=== PATIENT | female | born 1950 | race African-American/Black ===

== ENCOUNTER → 2016-09-25 | Outpatient (CLI) | payer BC ==
[~2016-09-25] MED LIST: GABA-112 PO; GLC500 PO; LISI-729 PO
--- NOTE | 2016-09-25 13:28 | MAMMOGRAPHY REPORT ---
BILATERAL DIGITAL SCREENING MAMMOGRAM WITH CAD: 09/25/2016 CLINICAL HISTORY: Routine screening. Patient has no complaints. TECHNIQUE: Bilateral CC and MLO views were obtained. Current study was also evaluated with a Compute r Aided Detection (CAD) system. COMPARISON: Comparison is made to exams dated: 09/05/2015 mammogram, 08/18/2014 mammogram, 06/15/2012 edi mogram, 06/13/2011 mammogram, 09/06/2009 mammogram - [facility], and 09/01/2008. BREAST COMPOSITION: There are scattered areas of fibroglandular density in both breasts. FINDINGS: There are a few benign-appearing microcalcifications in the left breast. No suspicious mas s, architectural distortion or cluster of suspicious microcalcifications is seen. IMPRESSION: ACR BI-RADS CATEGORY 1: NEGATIVE There is no mammographic evidence of malignancy. A 1 year screening mammogram is recommended. The pa tient will receive written notification of the results. Approximately 10% of breast cancers are not detected with mammography. A negative mammographic report should not delay biopsy if a clinically suggestive mass is present. Bailey Corona M.D. ay/:09/25/2016 09:43:59 [employer] Operator: Elizabeth SALINAS(R)(M), [facility] letter sent: Normal 1/2 BI-RADS Code: ACR BI-RADS Category 1: Negative
== END | disposition home or self-care (01) ==
LOC: C.MAMM 09:01
PROVIDERS: ATTEND Obstetrics & Gynecology
DX: Z12.31 Encounter for screening mammogram for malignant neoplasm of breast (principal)

== ENCOUNTER → 2016-10-10 | Outpatient (CLI) | payer BC ==
--- NOTE | 2016-10-10 12:26 | DIAGNOSTIC IMAGING REPORT ---
LUMBAR SPINE 5 VIEWS CLINICAL HISTORY: Chronic low back pain. FINDINGS: 5 views of the lumbar spine are correlated with MRI of the lumbar spine dated 11/17/2015. The skeletal structures are osteopenic. There is no radiographic evidence of fracture or malalignment. Vertebral body height and alignment are maintained. Small anterior osteophytes are seen throughout. A benign-appearing lucent lesion in the body of L2 is unchanged. The transverse and spinous processes are intact. There is no evidence of spondylolysis. There is advanced degenerative disc space narrowing at L4-L5 with associated endplate sclerosis. Moderate narrowing is seen at L3-L4 and L5-S1. Facet arthropathy is noted in the lower lumbar region. The visualized bony pelvis appears intact. Mild sclerotic change is seen involving the sacroiliac joints. Arthritic change is noted in the hips. There is a nonobstructed abdominal bowel gas pattern noting moderate colonic fecal retention. Pelvic phleboliths are observed. IMPRESSION: 1. No acute bony abnormality is seen involving the lumbosacral spine. 2. Osteopenia and spondylotic change as above. This is similar to prior studies. Electronically signed by: Caden Florian M.D. 10/10/2016 12:25 PM Dictated Date/Time: 10/10/2016 12:22 PM
== END | disposition home or self-care (01) ==
LOC: C.RDSM 14:45
PROVIDERS: ATTEND Physician Assistant
DX: M54.5 Low back pain (principal); M85.88 Other specified disorders of bone density and structure, other site

== ENCOUNTER → 2017-06-12 | Outpatient (CLI) | payer BC ==
[2017-06-12 17:05] LABS: ALT/SGPT 19 U/L (12-78); AST/SGOT 10 U/L (15-37); BLOOD UREA NITROGEN 26 mg/dl (7-18); CALCIUM 9.3 mg/dl (8.5-10.1); CARBON DIOXIDE 29 mmol/L (21-32); CHOLESTEROL 154 mg/dl (0-200); CREATININE 0.88 mg/dl (0.60-1.20); GLUCOSE 103 mg/dl (70-99); POTASSIUM 4.5 mmol/L (3.5-5.1); SODIUM 138 mmol/L (136-145)
[2017-06-12 17:15] LABS: ALKALINE PHOSPHATASE 79 U/L (45-117); LDL CHOLESTEROL CALCULATED 75 mg/dl; TOTAL PROTEIN 7.9 gm/dl (6.4-8.2)
[2017-06-12 17:51] LABS: CREATININE RANDOM URINE 69.1 mg/dl
[2017-06-13 06:51] LABS: HEMOGLOBIN A1C 6.9 % (4.5-5.6)
== END | disposition home or self-care (01) ==
LOC: C.LAB1850 15:42
PROVIDERS: ATTEND Internal Medicine Endocrinology, Diabetes & Metabolism
DX: E11.9 Type 2 diabetes mellitus without complications (principal); E55.9 Vitamin D deficiency, unspecified; E78.5 Hyperlipidemia, unspecified; E66.9 Obesity, unspecified

== ENCOUNTER → 2017-11-18 | Outpatient (CLI) | payer BC ==
--- NOTE | 2017-11-19 13:38 | MAMMOGRAPHY REPORT ---
BILATERAL DIGITAL SCREENING MAMMOGRAM TOMOSYNTHESIS WITH CAD: 11/18/2017 CLINICAL HISTORY: Routine screening. Patient has no complaints. TECHNIQUE: The study was acquired using full field digital technology and interpreted from soft copy. Breast tomosynthesis in addition to standard 2D mammography was performed. Current study was also ev aluated with a Computer Aided Detection (CAD) system. COMPARISON: Comparison is made to exams dated: 09/25/2016 mammogram, 09/05/2015 mammogram, 08/18/2014 ma mmogram, 06/15/2012 mammogram, 06/13/2011 mammogram, and 09/06/2009 mammogram - [facility] er. BREAST COMPOSITION: There are scattered areas of fibroglandular density in both breasts. FINDINGS: The parenchymal pattern is unchanged. No developing mass, architectural distortion or cluster of susp icious microcalcifications is seen in either breast. IMPRESSION: ACR BI-RADS CATEGORY 2: BENIGN There is no mammographic evidence of malignancy. A 1 year screening mammogram is recommended.( 019) The patient will receive written notification of the results. Some breast cancers are not detected with mammography. A negative mammographic report should not charanjit y biopsy if a clinically suggestive mass is present. Bailey Corona M.D. ay/:11/18/2017 16:16:05 Senior Clinical Data Manager: RT Veronica(Su)(M), [facility] letter sent: Normal 1/2 BI-RADS Code: ACR BI-RADS Category 2: Benign
== END | disposition home or self-care (01) ==
LOC: C.MAMM 12:43
PROVIDERS: ATTEND Nurse Practitioner Family
DX: Z12.31 Encounter for screening mammogram for malignant neoplasm of breast (principal); Z13.820 Encounter for screening for osteoporosis; M85.852 Other specified disorders of bone density and structure, left thigh; M85.851 Other specified disorders of bone density and structure, right thigh; Z78.0 Asymptomatic menopausal state; Z88.8 Allergy status to other drugs, medicaments and biological substances; Z88.5 Allergy status to narcotic agent

== ENCOUNTER 2024-05-11 14:07 | Inpatient (IN) ==
[2024-05-11 14:59] LABS: Basophils # (auto) 0.06 K/uL (0.00-0.20); Basophils % (auto) 0.5 %; Eosinophils # (auto) 0.09 K/uL (0.00-0.50); Eosinophils % (auto) 0.8 %; Hemoglobin 12.3 g/dl (12.0-16.0); Immature Granulocytes # (auto) 0.03 K/uL (0.01-0.20); Immature Granulocytes % (auto) 0.3 %; Lymphocytes # (auto) 4.49 K/uL (1.20-3.40); Lymphocytes % (auto) 39.7 %; Mean Corpuscular Hemoglobin 28.8 pg (25.0-34.0); Mean Corpuscular Hgb Conc 31.5 g/dL (32.0-36.0); Mean Corpuscular Volume 91.3 fL (80.0-100.0); Mean Platelet Volume 11.3 fL (9.4-12.4); Monocytes # (auto) 1.09 K/uL (0.11-0.59); Monocytes % (auto) 9.6 %; Neutrophils # (auto) 5.54 K/uL (1.40-6.50); Neutrophils % (auto) 49.1 %; Platelet Count 272 K/uL (130-400); RDW Coefficient of Variation 14.3 % (11.5-14.5); RDW Standard Deviation 47.8 fL (36.4-46.3); Red Blood Count 4.27 M/uL (4.20-5.40)
[2024-05-11 15:21] LABS: Albumin Globulin Ratio 1.2 (0.9-2); Albumin Level 4.4 gm/dl (3.4-5.0); BUN Creatinine Ratio 18.8 (10-20); Bilirubin,Total 0.3 mg/dl (0.2-1.0); Calcium 9.8 mg/dl (8.6-10.3); Creatinine Clr Calc Pharmacy 37.6 ml/min; Globulin 3.6 gm/dl (2.5-4.0); Potassium 6.4 mmol/L (3.5-5.1)
--- NOTE | 2024-05-11 15:24 | XRay Report ---
XR chest 1V not portable CLINICAL HISTORY: Chest pain, nonspecific COMPARISON STUDY: Chest radiograph April 13, 2021. FINDINGS: Lung volumes are normal. Lungs are clear. Stable calcified granulomas within the right lowe r lung. There is no pneumothorax or pleural effusion. Cardiac size is normal. Mediastinal contours ar e normal. There is no evidence for pulmonary edema. IMPRESSION: No acute cardiopulmonary findings. No change in appearance of the chest. ACT 112: Negative or not required by law. Electronically signed by: Brennen Adler M.D. 05/11/2024 3:22 PM
[2024-05-11 15:30] LABS: Partial Thromboplastin Time 28 Seconds (21-31); Prothrombin Time 10.8 Seconds (9.0-12.0)
[2024-05-11 15:38] LABS: Troponin I High Sensitivity 5.9 pg/ml (0-14)
[2024-05-11] MEDS ORDERED: SODIUM CHLORIDE 0.9% 500 ML IV SCH (15:45)
[2024-05-11 16:01] LABS: Magnesium 1.9 mg/dl (1.7-2.4)
--- NOTE | 2024-05-11 16:02 | History & Physical Report ---
Date of Service May 11, 2024 Assessment & Plan (1) Hyperkalemia: Plan: Symptomatic with hand numbness and EKG changes Monitor on telemetry Calcium gluconate, Insulin/dextrose given in the ER Start Lokelma 10g PO TID Hold lisinopril Low potassium diet Repeat potassium 5.4, will repeat q6h. Give further insulin /dextrose if K rising, repeat calcium gluconate if K > 6 (2) Junctional bradycardia: Plan: EKG daily TTE Hold verapamil Consult cardiology - discussed with Dr Miller on admission (3) PJ (acute kidney injury): Plan: Mild, push PO fluids Repeat BMP in AM Hold lisinopril Plan VTE Prophylaxis - low risk Diet - low potassium Disposition - admit to PCU Admission and Anticipated Discharge Date Admission Date: May 11, 2024 History of Present Illness Chief Complaint: Palpitations Primary Care Provider: Amari Montanez MD Trenton Mccray is a 73 year old female who presents to the ER with palpitations and shortness of breath. She finds it difficult to explain her symptoms and changes her story often but reportedly initial symptom started 2.5 weeks ago while taking her granddaughter to the doctor she had chest tightness, palpitations and short of breath. Because she was with her granddaughter she felt she had to hied her symptoms but she did have to sit down and symptoms resolved in 30 minutes. Worse on exertion and deep breathing. Since this time she has had intermittent episodes although unclear how long these are lasting. Yesterday she felt a strong heart beat with shortness of breath possibly after exercising. Today she woke up with paresthesias in bilateral finger tips. No weakness or muscle twitching. She denies any chest pain but calls it more of a tightness whenever she has these palpations. At rest she currently feels very mildly short of breath. She denies dizziness, claudications, leg swelling. She reports 9lb of weight gain over the holidays but feels this is diet related rather than water weight. She reports dramatic change in diet the last week with eating much more fruits, nuts, seeds, water. No salt substitute. No new medication changes recently. Allergies Allergy/AdvReac Type Severity Reaction Status Date / Time silicone Allergy Severe Lip Unverified 05/11/24 17:10 swelling tramadol Allergy Severe Swelling Verified 05/11/24 17:10 of Lip/Tongue/Throat Chkkkro-IQN-NrS Reductase Allergy Mild "just Verified 05/11/24 17:10 Inhibitor didn't go [Ykftdbk-Mki-Lzr Reductase over well" Inhibitor] egg AdvReac Intermediate abdominal Verified 05/11/24 17:10 pain/diarrhea Home Medications Medication Instructions Recorded Confirmed Type metformin 1,000 mg tablet 1,000 mg PO BID 03/24/19 05/11/24 History sertraline 25 mg tablet 25 mg PO QAM 05/24/21 05/11/24 History cyanocobalamin (vitamin B-12) 1,000 mcg PO DAILY 10/22/22 05/11/24 History 1,000 mcg tablet lisinopril 20 mg tablet 20 mg PO QAM 10/22/22 05/11/24 History verapamil 120 mg 24 hr 120 mg PO QAM 10/22/22 05/11/24 History capsule,extended release zinc 50 mg tablet 50 mg PO DAILY 10/22/22 05/11/24 History ascorbic acid (vitamin C) 500 mg 500 mg PO BID 03/18/23 05/11/24 History tablet (Vitamin C) cholecalciferol (vitamin D3) 25 25 mcg PO BID 03/18/23 05/11/24 History mcg (1,000 unit) tablet (Vitamin D3) Past Med/Surg History Problem List (Updated 05/12/24 @ 07:14 by Von Johnson MD) PJ (acute kidney injury) Junctional bradycardia Hyperkalemia (Acute) Urge incontinence Dysphonia Sensorineural hearing loss (SNHL) of both ears Word finding difficulty Balance problem Postconcussion syndrome Hearing decreased Raynaud's phenomenon Major depression, recurrent Meningioma Concussion syndrome Cholesterol-lowering agent myopathy Tinnitus Medical History GERD (gastroesophageal reflux disease) Anxiety Hx of concussion 2022>was having problems with commuication but no long lasting problems Hx of vertigo Hx of tuberculosis no signs/symptoms currently>dx 1973 Sciatic nerve pain Spinal stenosis Osteoarthritis Stress incontinence Diabetes mellitus, type [address] Lemus Sleep apnea no device "lost weight" Surgical History History of tooth extraction History of cataract surgery rt/left History of bronchoscopy History of colonoscopy History of appendectomy Family History Grandfather (Maternal) Diabetes Hypertension Grandmother (Maternal) Hypertension great-grandmother Father Heart disease Other No family history of adverse response to anesthesia No family history of bleeding disorder Social History Smoking Status: Never smoker Second Hand Exposure: No; Do You Dip or Chew Tobacco: No; Hx Alcohol Use: No Hx Substance Use: No Preferred Language: Polish Communication Ability: Effective Lead Carpenter Required: No Beliefs That Will Affect Care: None marital status: Current Living Situation: Spouse current occupational status: retired Feels Safe at Home: Yes Safety Concerns: Feels Safe At This Time Assistive Devices: Glasses Review of Systems Review of Systems: All systems reviewed & are unremarkable except as noted in HPI & below Intermittent diarrhea and constipation for the last year Physical Exam Constitutional: WD/WN, vitals as above Respiratory: normal respiratory effort, lungs clear to auscultation Cardiovascular: Rate/Rhythm: regular rhythm and + bradycardic Heart Sounds: no murmur Gastrointestinal (Abdomen): normal bowel sounds, soft, nontender, no hepatosplenomegaly Results & Data Results & Data Vital Signs (Past 12 Hours) Vital Signs Temp Pulse Resp BP Pulse Ox O2 Del Method 05/11/24 14:10 36.7 C 87 20 169/67 H 98 Room Air Laboratory Results Abnormal lab results 05/11/24 05/11/24 Range/Units 14:31 16:33 WBC 11.30 H (4.8-10.8) K/ul MCHC 31.5 L (32.0-36.0) g/dL RDW Std Deviation 47.8 H (36.4-46.3) fL Lymph # (Auto) 4.49 H (1.20-3.40) K/uL [place] # (Auto) 1.09 H (0.11-0.59) K/uL Sodium 133 L (136-145) mmol/L Potassium 6.4 H* (3.5-5.1) mmol/L BUN 27 H (6-23) mg/dl Creatinine 1.44 H (0.6-1.2) mg/dl Glucose 112 H (70-99(Fasting)) mg/dl POC Glucose 132 H (70-99) mg/dl Diagnostic Findings XR chest 1V not portable CLINICAL HISTORY: Chest pain, nonspecific COMPARISON STUDY: Chest radiograph April 13, 2021. FINDINGS: Lung volumes are normal. Lungs are clear. Stable calcified granulomas within the right lower lung. There is no pneumothorax or pleural effusion. Cardiac size is normal. Mediastinal contours are normal. There is no evidence for pulmonary edema. IMPRESSION: No acute cardiopulmonary findings. No change in appearance of the chest. Medications Administered ER Medications Given: Calcium gluconate 1000mg IV Insulin 5 units IV Dextrose 50% 50ml Normal saline 500ml bolus ECG Rate (beats per minute): 52 Rhythm: other (junctional bradycardia) Findings: + other (peaked T waves) Comparison ECG Date: from (June 21, 2022) Change: the following changes noted (Junctional bradycardia is new) Code Status & VTE Plan Code Status Full VTE Prophylaxis Plan VTE Prophylaxis will be ordered: No PG Care Time/CCT Total # of Minutes Spent Total Time Spent with Patient: Total time spent is greater than 50% in coordination of care (as documented) at patient's floor/unit and/or counseling patient: Coding Level of Care Code 01358 INT INP/OBS CARE 3/75MIN Diagnoses Hyperkalemia E87.5 Junctional bradycardia R00.1 PJ (acute kidney injury) N17.9
[2024-05-11] MEDS: INSULIN HUMAN REGULAR PER UNIT 5 UNITS in SYRINGE 9.9 ML IV STA (16:07)
[2024-05-11] MEDS: CALCIUM GLUCONATE 1,000 MG/60 ML BAG IV STA (16:07)
[2024-05-11] MEDS: DEXTROSE 50% 50 ML SYRINGE IV STA (16:07)
[2024-05-11] MEDS: SODIUM ZIRCONIUM CYCLOSILICATE 10 GM PACKET PO STA (16:08)
--- NOTE | 2024-05-11 17:03 | Emergency Department Note ---
History of Present Illness General Chief Complaint: Arrhythmia/Palpitations Stated Complaint: PALPITATIONS/STARTED YESTERDAY Time Seen by Provider: 05/11/24 15:22 History of Present Illness Provider Complaint: + palpitations Onset (ago): 2 day(s) Duration: + Intermittent Context: + occurred during rest Arrhythmia history: no on anti-coagulants Associated symptoms: + shortness of breath; no chest pain, no syncope, no vomiting or no cough Home Medications Medication Instructions Recorded Confirmed Type metformin 1,000 mg tablet 1,000 mg PO BID 03/24/19 02/20/24 History sertraline 25 mg tablet 25 mg PO QAM 05/24/21 02/20/24 History cyanocobalamin (vitamin B-12) 1,000 mcg PO DAILY 10/22/22 02/20/24 History 1,000 mcg tablet lisinopril 20 mg tablet 20 mg PO QAM 10/22/22 02/20/24 History verapamil 120 mg 24 hr 120 mg PO QAM 10/22/22 02/20/24 History capsule,extended release zinc 50 mg tablet 50 mg PO DAILY 10/22/22 02/20/24 History ascorbic acid (vitamin C) 500 mg 500 mg PO BID 03/18/23 02/20/24 History tablet (Vitamin C) cholecalciferol (vitamin D3) 25 25 mcg PO BID 03/18/23 02/20/24 History mcg (1,000 unit) tablet (Vitamin D3) multivitamin (Daily Multi-Vitamin 1 tab PO DAILY 01/22/24 02/20/24 History tablet) Allergies Allergy/AdvReac Type Severity Reaction Status Date / Time tramadol Allergy Severe Swelling Verified 02/20/24 14:04 of Lip/Tongue/Throat Uzyzmwz-RHH-CqU Reductase Allergy Mild "just Verified 02/20/24 14:04 Inhibitor didn't go [Puqtwya-Gto-Huc Reductase over well" Inhibitor] egg AdvReac Intermediate abdominal Verified 02/20/24 14:04 pain/diarrhea Past Med/Surg History Problem List (Updated 05/11/24 @ 17:09 by Jeanmarie Larios MD) Hyperkalemia (Acute) Urge incontinence Dysphonia Sensorineural hearing loss (SNHL) of both ears Word finding difficulty Balance problem Postconcussion syndrome Hearing decreased Raynaud's phenomenon Major depression, recurrent Meningioma Concussion syndrome Cholesterol-lowering agent myopathy Routine gynecological examination Encounter for pre-operative examination Tinnitus Medical History GERD (gastroesophageal reflux disease) Anxiety Hx of concussion 2022>was having problems with commuication but no long lasting problems Hx of vertigo Hx of tuberculosis no signs/symptoms currently>dx 1973 Sciatic nerve pain Spinal stenosis Osteoarthritis Stress incontinence Diabetes mellitus, type [address] Lemus Sleep apnea no device "lost weight" Surgical History History of tooth extraction History of cataract surgery rt/left History of bronchoscopy History of colonoscopy History of appendectomy Family History Grandfather (Maternal) Diabetes Hypertension Grandmother (Maternal) Hypertension great-grandmother Father Heart disease Other No family history of adverse response to anesthesia No family history of bleeding disorder Social History Smoking Status: Never smoker Second Hand Exposure: No; Do You Dip or Chew Tobacco: No; Hx Alcohol Use: No Hx Substance Use: No Preferred Language: Urdu Communication Ability: Effective Scale Clerk Required: No Beliefs That Will Affect Care: None marital status: Current Living Situation: Spouse current occupational status: retired Feels Safe at Home: Yes Assistive Devices: Denture - Lower Physical Exam 2 Vital Signs: Vital Signs - 24 hr 05/11/24 14:10 05/11/24 16:12 05/11/24 16:13 Temperature 36.7 C Temperature Source Temporal Artery Sc an Pulse Rate 87 43 L Pulse Rate [Right Finger] 72 Pulse Rhythm Regular Pulse Rhythm [Righ t Finger] Regular Pulse Strength Normal Pulse Strength [Ri ght Finger] Normal Respiratory Rate 20 13 Respiratory Effort / Characteristics Non-Labored Sponta neous Non-Labored Respiratory Depth Normal Normal Respiratory Patter n Regular Blood Pressure 169/67 H Blood Pressure [Ri ght Arm] 160/72 H Blood Pressure Iris n 101 Blood Pressure Iris n [Right Arm] 101 Blood Pressure Pos ition [Right Arm] Lying Pulse Oximetry 98 96 Oxygen Delivery Me thod Room Air Room Air Sepsis Recent Feve r Within 48 Hours No Sepsis New/Unexpla ined Change in Men debora Status N/A Sepsis Action Take n by Nursing No Action Required 05/11/24 16:13 Temperature Temperature Source Pulse Rate Pulse Rate [Right Finger] Pulse Rhythm Pulse Rhythm [Righ t Finger] Pulse Strength Pulse Strength [Ri ght Finger] Respiratory Rate Respiratory Effort / Characteristics Respiratory Depth Respiratory Patter n Blood Pressure Blood Pressure [Ri ght Arm] Blood Pressure Iris n Blood Pressure Iris n [Right Arm] Blood Pressure Pos ition [Right Arm] Pulse Oximetry 96 Oxygen Delivery Me thod Room Air Sepsis Recent Feve r Within 48 Hours Sepsis New/Unexpla ined Change in Men debora Status Sepsis Action Take n by Nursing Physical Exam: Physical Exam GENERAL: oriented to person, place, and time. appears well-developed and well- nourished. HENT: Exam performed. - Head: Normocephalic and atraumatic. EYES: Conjunctivae and EOM are normal. Right eye exhibits no discharge. Left eye exhibits no discharge. No scleral icterus. NECK: Normal range of motion. Neck supple. No JVD present. CV: Normal rate, regular rhythm, normal heart sounds and intact distal pulses. There is no peripheral edema. Palpable radial pulses bue. PULM/CHEST: Effort normal and breath sounds normal. No respiratory distress. No stridor. no wheezes. no rales. ABD: The abdomen is soft. There is no tenderness. NEURO: Motor and sensation grossly intact. SKIN: Skin is warm and dry. He is not diaphoretic. PSYCH: normal mood and affect. Behavior is normal. Judgment and thought content normal. Course Course 1522: The patient was evaluated in room C9. A complete history and physical exam was performed Administered Medications Discontinued Medications Dextrose (Dextrose 50% 50 Ml Syringe) 50 ml IV NOW STA Stop: 05/11/24 15:24 Last Admin: 05/11/24 16:07 Dose: 50 ml Documented By: CARA Calcium Gluconate () 1,000 mg in 60 mls @ 240 mls/hr IV NOW STA Stop: 05/11/24 15:37 Last Infusion: 05/11/24 16:34 Dose: Infused Documented By: Admin: 05/11/24 16:07 Dose: 240 mls/hr Documented By: CARA Insulin Human Regular 5 units/ (Syringe) 9.9 mls @ 3 mls/sec IV ONE STA Stop: 05/11/24 15:24 Last Admin: 05/11/24 16:07 Dose: 3 mls/sec Documented By: CARA Co-signed By: CHITO Sodium Zirconium Cyclosilicate (Sodium Zirconium Cyclosilicate 10 Gm Packet) 10 gm PO ONE STA Stop: 05/11/24 15:44 Last Admin: 05/11/24 16:08 Dose: 10 gm Documented By: CARA Medical Decision Making Laboratory Data Attestation: I reviewed the patient's lab results. 05/11/24 14:31 05/11/24 14:31 Lab Results 05/11/24 05/11/24 Range/Units 14:31 16:33 WBC 11.30 H (4.8-10.8) K/ul RBC 4.27 (4.20-5.40) M/uL Hgb 12.3 (12.0-16.0) g/dl Hct 39.0 (37.0-47.0) % MCV 91.3 (80.0-100.0) fL MCH 28.8 (25.0-34.0) pg MCHC 31.5 L (32.0-36.0) g/dL RDW Std Deviation 47.8 H (36.4-46.3) fL RDW Coeff of Tyesha 14.3 (11.5-14.5) % Plt Count 272 (130-400) K/uL MPV 11.3 (9.4-12.4) fL Immature Gran % (Auto) 0.3 % Neut % (Auto) 49.1 % Lymph % (Auto) 39.7 % [place] % (Auto) 9.6 % Eos % (Auto) 0.8 % Baso % (Auto) 0.5 % Neut # (Auto) 5.54 (1.40-6.50) K/uL Lymph # (Auto) 4.49 H (1.20-3.40) K/uL [place] # (Auto) 1.09 H (0.11-0.59) K/uL Eos # (Auto) 0.09 (0.00-0.50) K/uL Baso # (Auto) 0.06 (0.00-0.20) K/uL Immature Gran # (Auto) 0.03 (0.01-0.20) K/uL PT 10.8 (9.0-12.0) Seconds INR 1.0 (0.9-1.1) APTT 28 (21-31) Seconds PTT Ratio 1.0 Sodium 133 L (136-145) mmol/L Potassium 6.4 H* (3.5-5.1) mmol/L Chloride 104 (98-107) mmol/L Carbon Dioxide 23 (21-32) mmol/L Anion Gap 6 (3-11) BUN 27 H (6-23) mg/dl Creatinine 1.44 H (0.6-1.2) mg/dl Est Cr Clr Drug Dosing 37.6 ml/min eGFR 38.17 BUN/Creatinine Ratio 18.8 (10-20) Glucose 112 H (70-99(Fasting)) mg/dl POC Glucose 132 H (70-99) mg/dl Calcium 9.8 (8.6-10.3) mg/dl Magnesium 1.9 (1.7-2.4) mg/dl Total Bilirubin 0.3 (0.2-1.0) mg/dl AST 18 (13-39) U/L ALT 12 (7-52) U/L Alkaline Phosphatase 94 (34-104) U/L Troponin I High Sens 5.9 (0-14) pg/ml Total Protein 8.0 (6.0-8.3) gm/dl Albumin 4.4 (3.4-5.0) gm/dl Globulin 3.6 (2.5-4.0) gm/dl Albumin/Globulin Ratio 1.2 (0.9-2) Imaging Data Attestation: I personally reviewed and interpreted this imaging study as follows: My Impression: Chest x-ray negative. Airway clear. No pneumothorax. No consolidation. No cardiomegaly or cephalization.. No free air under the diaphragm. No fractures of the skeletal structures. Radiologist's Impression: Chest X-Ray 05/11/24 14:14 XR chest 1V not portable CLINICAL HISTORY: Chest pain, nonspecific COMPARISON STUDY: Chest radiograph April 13, 2021. FINDINGS: Lung volumes are normal. Lungs are clear. Stable calcified granulomas within the right lower lung. There is no pneumothorax or pleural effusion. Cardiac size is normal. Mediastinal contours are normal. There is no evidence for pulmonary edema. IMPRESSION: No acute cardiopulmonary findings. No change in appearance of the chest. ACT 112: Negative or not required by law. Electronically signed by: Brennen Adler M.D. 05/11/2024 3:22 PM ECG Data Attestation: I personally reviewed and interpreted this ECG as follows: Rate (beats per minute): 52 Rhythm: junctional Findings: + peaked T-waves; no ST depression, no ST elevation or no prolonged QT MDM Narrative Cardiac monitoring: An order was placed for continuous cardiac monitoring. The monitor shows a rate of 50 with junctional rhythm interpreted by me Patient was seen during a time of extreme volume and extreme acuity. Nursing triage protocols were initiated labs and imaging was conducted by protocol in the triage area. Potassium 6.4. Patient be treated with calcium gluconate IV insulin and 1 amp of D50. [facility]. [facility]ression & Plan Hyperkalemia Critical Care Time Critical Care Time: Yes Total Critical Care Time: 50 I have personally spent greater than 50 minutes of critical care time in the direct management of this patient. This includes bedside care, interpretation of diagnostic studies, and testing, discussion with consultants, patient, and family members, and other required patient management activities. This 50 minutes is in excess of all separately billable procedures. Discharge Plan Visit Data Chief Complaint: Arrhythmia/Palpitations Stated Complaint: PALPITATIONS/STARTED YESTERDAY ED Provider: Jeanmarie Larios Discharge Problem: Hyperkalemia Patient Disposition: Admitted As Inpatient Forms Stand Alone Forms: My [facility] [address] Prescriptions Prescriptions: No Action sertraline 25 mg tablet 25 mg PO QAM cyanocobalamin (vitamin B-12) 1,000 mcg tablet 1,000 mcg PO DAILY lisinopril 20 mg tablet 20 mg PO QAM verapamil 120 mg capsule,ext rel. pellets 24 hr 120 mg PO QAM multivitamin [Daily Multi-Vitamin] Tablet 1 tab PO DAILY metformin 1,000 mg Tablet 1,000 mg PO BID zinc 50 mg tablet 50 mg PO DAILY ascorbic acid (vitamin C) [Vitamin C] 500 mg Tablet 500 mg PO BID cholecalciferol (vitamin D3) [Vitamin D3] 25 mcg (1,000 unit) Tablet 25 mcg PO BID Referrals Referrals: Amari Montanez MD [Primary Care Provider] -
[2024-05-11 20:16] VITALS: RESP 18
--- OUTSIDE RECORDS SUMMARY | 2024-05-11 21:30 | External Medical Summary | Continuity of Care Document ---
Author Name Unknown Organization [facility] [address] [facility] [id number] Care Team Providers Care Hospice Social Worker Name Role Phone Amari Montanez Primary Care Physician [phone] Encounter [facility] [id number] Date(s): 05/04/24 - 05/04/24 [facility] [address] [facility] [address] [facility] 1 [place], [place] [phone] Encounter Diagnosis Other malaise(Final) - Encounter for therapeutic drug level monitoring(Final) - Type 2 diabetes mellitus without complications(Final) - Discharge Disposition: Home or Self Care Attending Physician: MD Montanez Joseph P Referring Physician: MD Montanez Joseph P Allergies, Adverse Reactions, Alerts Substance Criticality Severity Reaction Reaction Severity Status Lipitor myalgias Active traMADol rash Active eggs cramps, stomach ache Active Allergy Not found in Search unknown abx- got really sick white gold-dermatitis Active Immunizations Given and Recorded Vaccine Date Status Refusal Reason pneumococcal 23-valent vaccine 03/12/22 Given pneumococcal 23-valent vaccine 04/14/13 Recorded influenza virus vaccine, inactivated 03/12/22 Give n influenza virus vaccine, inactivated 03/27/20 Give n influenza virus vaccine, inactivated 1 02/04/18 Re corded influenza virus vaccine, inactivated 12/31/16 Give n zoster vaccine, inactivated 04/02/21 Recorded tetanus/diphtheria/pertuss, acel (Tdap) 09/28/19 G iven zoster vaccine live 2 11/15/15 Given pneumococcal 13-valent vaccine 3 11/15/15 Given 1Result Comment: 2018-05-19: Historical information-source unspecified 2Early/Late Reason: Other : busy 3Early/Late Reason: Other : busy Medications Euflexxa 10 mg/mL intra-articular solution Start: 04/23/24 11:48:00 AM EST, 20 mg =, intra-articular, q7days, Disp# 12 mL, X 3 weeks, Refills: 0, B/L KNEE DJD M17.0, Note to Pharmacy: 6 syringes for B/L knees. Please ship to physician's office: [address]. [address] [place] [id number], Stop: 05/14/24 11:48:00 AM EST, Pharmacy: [facility] Start Date: 04/23/24 Stop Date: 05/14/24 Status: Ordered hydrocortisone valerate 0.2% topical cream Start: 04/11/23 6:15:00 AM EST, 1 appl, topical, Daily, Disp# 45 g, Refills: 1, Pharmacy: [id number] Start Date: 04/11/23 Stop Date: 05/09/23 Status: Ordered lisinopril 20 mg oral tablet Start: 04/08/24 11:45:00 AM EST, 1 tab, PO, Daily, Disp# 90 tab, Refills: 3, Pharmacy: [id number] Start Date: 04/08/24 Status: Ordered metFORMIN 1000 mg oral tablet Start: 11/13/23 10:39:00 AM EDT, 1 tab, PO, bid, Disp# 180 tab, Refills: 3, Pharmacy: [id number] Start Date: 11/13/23 Status: Ordered sertraline 25 mg oral tablet Start: 11/13/23 10:39:00 AM EDT, 1 tab, PO, Daily, Disp# 90 tab, Refills: 3, Pharmacy: [id number] Start Date: 11/13/23 Status: Ordered verapamil 120 mg/24 hours oral capsule, extended release Start: 04/02/23 5:37:00 PM EST, 1 cap, PO, Daily, Disp# 90 cap, Refills: 3, Pharmacy: [id number] Start Date: 04/02/23 Status: Ordered Vitamin B12 1000 mcg oral tablet Start: 05/31/13 3:17:00 PM EST, 1 tab, PO, Daily Start Date: 05/31/13 Status: Ordered Vitamin C Start: 04/23/18 1:11:00 PM EST, PO, Daily Start Date: 04/23/18 Status: Ordered Vitamin D3 Start: 04/23/18 1:11:00 PM EST, See Instructions, 3,000 daily Start Date: 04/23/18 Status: Ordered Zinc Start: 04/23/18 1:11:00 PM EST, PO, Daily Start Date: 04/23/18 Status: Ordered ZyrTEC 10 mg oral tablet Start: 04/04/23 11:45:00 AM EST, 1 tab, PO, Daily, Disp# 30 tab, Refills: 1, PRN: as needed for allergy symptoms, Pharmacy: [id number] Start Date: 04/04/23 Stop Date: 06/03/23 Status: Ordered Problem List Condition Confirmation Course Effective Dates Status H ealth Status Informant Arthrosis of left midfoot Confirmed Active Meningioma Confirmed Active Tinnitus, bilateral Confirmed Active Chronic dermatitis Confirmed Active Eczema Confirmed Active High blood pressure Confirmed Active History of positive PPD Confirmed Active Hyperlipidemia Confirmed Active VAMSI on CPAP Confirmed Active Osteoarthritis of knee Confirmed Active Major depression, recurrent Confirmed Active Sensorineural hearing loss Confirmed Active Sleep apnea Confirmed Active Spinal stenosis Confirmed Active Type 2 diabetes mellitus with mild nonproliferative diabetic retinopathy without macular edema, bilateral Confirmed Active Procedures Procedure Date Related Diagnosis Body Site Status Colonoscopy 1 03/26/23 Completed Ultrasound of soft tissue of head and neck 2 12/20/22 Completed Ultrasound scan of thyroid 3 12/20/22 Completed Plain X-ray of bilateral clavicles 4 12/17/[address] of cervical spine 5 06/21/[address] of head 6 06/21/22 Completed CXR - Chest X-ray 7 04/13/21 Compl eted DEXA of hip and spine 8 01/23/21 C ompleted Mammogram 9 01/23/21 Completed Cataract surgery OD 10 05/04/19 Co mpleted Cataract surgery- OS 04/20/19 Comp leted Shoulder X-ray 11 04/08/19 Complet ed X-ray of right foot 12 04/08/19 Co mpleted Examining eye 13 03/02/19 Complete d DEXA (dual energy X-ray absorptiometry) of lateral spine 14 01/22/19 Completed Mammogram 15 12/08/18 Completed Papanicolaou smear 11/02/18 Comple pancho Diabetic retinal eye exam 16 09/17/18 Completed Mammogram 17 11/18/17 Completed Eye examination 18 09/19/17 Comple pancho Colonoscopy 19 03/18/17 Completed Papanicolaou smear for cervi ravinder cancer screening 10/25/16 Completed Mammogram 20 09/25/16 Completed DEXA - Dual energy X-ray collette ton absorptiometry 09/14/15 Completed PAP test date 09/01/15 Completed Colonoscopy 21 10/07/05 Completed Appendectomy 1957 Completed Bronchoscopy Completed 1External and internal hemorrhoids. The rectum, sigmoid colon, descending colon, splenic flexure, transverse colon, hepatic flexure, ascending colon, cecum and recto-sigmod colon was normal. No specimens. Repeat in 5 years. 2Impression: No acute abnormality is seen within the visualized region 3Impression: A 6x5x4 mm hypoechoic nodule within the lower pole the right thyrod lobe. This dose not meet sonographic criteria for biopsy 4Impression: No acute osseous abnormality 5Impression: 1. There is no evidence of fracture or subluxation involoving the cervival spine 2. Osteopenia and spondylitic change as above. 6Impression: There is no hemorrhage, mass effect, or evidence of acute territorial ischemia by CT criteria 7FINDINGS: Frontal and lateral radiographs of the chest demonstrate the cardiomediastinal silhouette to be within normal limits. The lungs are clear of alveolar opacities. Calcified granuloma seen within the right hilum and right middle lobe. This is characteristic of granulomatous disease. There is no evidence for effusion bilaterally. There is no evidence for vascular congestion. There is no acute osseouspathology. IMPRESSION: No acute cardiopulmonary disease. 8ap spine fx risk low left neck femur moderate fx risk right neck femur moderate fx risk total left low total right low zscore wnl 9Impression: There is no mammographic evidence of malignancy. 10Right cataract phacoemulsification with intraocular lens implant. 111. No acue fracture. 2. Moderate right shoulder osteoarthritis. 12No acute osseous injury. 13Bilateral cataracts, left being worse than the right. 14AP Spine L1-L4 is 1.374 with a T-score of 1.5 Femur Neck Left is 0.858 with a T-score of -1.3 Femur Neck Right is 0.798 wuth a T-score of -1.7 Femur Total Mean is 0.855 with a T-score of -1.2 With a Z-score of -1.0, this patient's BMD is low for someone this age. 15IMPRESSION: ACR BI-RADS CATEGORY 1: NEGATIVE There is no mammographic evidence of malignancy. A one year screening is recommended. 16No diabetic retinopathy. 17wnl 18DIABETIC EYE EXAM NO EVIDENCE OF RETINOPATHY. FOLLOW UP IN 1 YEAR 19One 7mm polyp in the cecum, removed with cold snares. One 3 mm polyp in the proximal transverse colon. Non bleeding internal hemorrhoids 20wnl 21Colonoscopy normal- Repeat in 10 years. Results Laboratory List Name Date Comprehensive Metabolic Panel (COMP META B PANEL) 05/04/24 Hemoglobin A1C (HEMOGLOBIN, A1C) 05/04/24 Thyroid Stimulating Hormone (TSH) 5 Most recent to oldest [Reference Range]: 1 eGFR CKD-EPI [>60 mL/min/1.73 m2] 74 mL/ min/1.73 m2 1 (05/04/24 1:47 PM) Estimated Average Glucose 146 mg/dL 2 (05/04/24 1:47 PM) Estimated CrCl 65.47 mL/min (05/04/24 2:22 PM) Anion Gap [5-14 mmol/L] 5 mmol/L (05/04/24 1:47 PM) Alb [3.5-5.0 g/dL] 4.3 g/dL (05/04/24 1:47 PM) Alk Phos [38-126 unit/L] 85 unit/L (05/04/24 1:47 PM) ALT [<35 unit/L] 18 unit/L (05/04/24 1:47 PM) AST [15-46 unit/L] 19 unit/L (05/04/24 1:47 PM) BUN [7-20 mg/dL] 18 mg/dL (05/04/24 1:47 PM) Ca [8.4-10.2 mg/dL] 9.3 mg/dL (05/04/24 1:47 PM) Cl- [96-107 mmol/L] 106 mmol/L (05/04/24 1:47 PM) HCO3 [22-30 mmol/L] 27 mmol/L (05/04/24 1:47 PM) Cret [0.60-1.00 mg/dL] 0.83 mg/dL (05/04/24 1:47 PM) HbA1c [4.0-6.0 %] 6.7 % *HI* (05/04/24 1:47 PM) Glu [74-106 mg/dL] 103 mg/dL (05/04/24 1:47 PM) K [3.5-5.1 mmol/L] 5.3 mmol/L *HI* (05/04/24 1:47 PM) Na [137-145 mmol/L] 138 mmol/L (05/04/24 1:47 PM) T Bili [0.2-1.3 mg/dL] 0.4 mg/dL (05/04/24 1:47 PM) Prot [6.3-8.2 g/dL] 8.0 g/dL (05/04/24 1:47 PM) TSH [0.47-4.68 uIU/mL] 1.83 uIU/mL 3 (05/04/24 1:47 PM) 1Result Comment: Testing Performed By: Dept of Pathology [facility] Tarun Minaya, [address] [place] [id number] 2Result Comment: Testing [facility]formed [facility]: [facility], [address] [place] [id number] 3Result Comment: Testing Performed By: [facility], [address] [place] [id number] Social History Social History Type Response Smoking Status Never smoked cigaret kim Sex Female Sex Representation Female (finding) Patient Care team information Care Team Personnel Name: MD Tarik, Amari Kelley Position: Physician - Family Med Member Role: Primary Care Provider Address: [address] [place] [address] [place] Care Team Related Persons Name: LILIA GARCIA
--- OUTSIDE RECORDS SUMMARY | 2024-05-11 21:30 | External Medical Summary | Continuity of Care Document ---
Author Name Unknown Organization [facility] [address] [id number] Address [address] [place] [id number] Care Team Providers Care Commercial Real Estate Paralegal Name Role Phone Amari Montanez Primary Care Physician [phone] Encounter [facility] [id number] Date(s): 04/22/24 - 04/22/24 [facility] [address] [facility] [address] [facility] [address] [place] [address] Encounter Diagnosis Left knee DJD(Discharge Diagnosis) - 04/22/24 Bilateral primary osteoarthritis of knee(Discharge Diagnosis) - 04/22/24 Discharge Disposition: Home or Self Care Attending Physician: OBDULIA Tsang Cory D Allergies, Adverse Reactions, Alerts Substance Criticality Severity Reaction Reaction Severity Status Lipitor myalgias Active traMADol rash Active eggs cramps, stomach ache Active Allergy Not found in Search unknown abx- got really sick white gold-dermatitis Active Assessment and Plan Extracted from: Title:Clinical Document Author:OBDULIA Tsang C ory D Date:04/22/24 OUTPATIENT NOTE Name: CANDY GARCIA V Patient Number:1 [id number] : 1950 Date of Service: 04/22/2024 Chief complaint: Bilateral knee pain, left greater than right HPI: This 73-year-old female presents today for evaluation of her knees. She has had increasing pain in her knees over the last few months. I last saw her a year and 5 days ago. At that time, she was considering total knee replacement for her left knee. She states the knee did very well all spring and summer. This fall began bothering her again. Her right knee is also bothering her. Left knee is lateral and right knee is medial. She has had some minor swelling intermittently. She notes some loss of motion. She would like to try viscosupplementation injections in hopes of delaying surgery. She states she last had them approximately 2 years ago and they worked reasonably well. No additional complaints. Physical exam General: Well-developed, well-nourished, elderly female, in no acute distress. Sitting in a chair. Alert and oriented. Obvious discomfort from her knees. Skin: Warm dry with good turgor. No rashes. No ecchymosis or erythema. No intra-articular effusions. Musculoskeletal: The patient has full terminal extension of both knees. Flexion to 105 degrees she has focal discomfort with palpation over the lateral joint line of the left knee and medial joint line of the right knee. There is also medial joint line discomfort on the left knee, but it is not as severe. Crepitus is palpable with motion in both of the knees. Stable collateral ligaments. No palpable defect or discomfort with palpation over the patellar tendon or quadriceps tendon of either knee. Ambulating today with a slightly antalgic gait. Neurologic: Gross sensation is intact across both lower extremities by soft touch. Data: Radiographic imaging obtained today of both knees was interpreted by me and read by radiology. These were compared to her films from a year ago. She has significant osteoarthritic change of the lateral compartment of the left knee and medial compartment of the right knee. Periarticular osteophytes, subchondral sclerosis, and joint space narrowing are present in both knees. She has a windswept appearance. No fractures or loose bodies are noted. Impression: Bilateral knee DJD Plan: The patient was educated regarding today's findings. Conservative care measures were discussed. Option of corticosteroid injection, viscosupplementation injection, and total knee arthroplasty was discussed at length. She is a diabetic and does not want cortisone. She would like to try viscosupplementation to see if it provides improved comfort. I think it is reasonable. She understands that if the injections do not help, she should start thinking about total knee arthroplasty over the spring or summer. Follow-up once her Euflexxa is authorized. She may use OTC medications as well as compression and ice for edema and pain control. This dictation has been completed using [employer] text voice recognition software. Grammatical errors, omissions, insertions, and misspellings may be present due to the limitations of the software. Immunizations Given and Recorded Vaccine Date Status [...] to physician's office: [address]. [address] [place] [id number], Stop: 05/14/24 11:48:00 AM EST, Pharmacy: [facility] Start Date: 04/23/24 Stop Date: 05/14/24 Status: Ordered hydrocortisone valerate 0.2% topical cream Start: 04/11/23 6:15:00 AM EST, 1 appl, topical, Daily, Disp# 45 g, Refills: 1, Pharmacy: [id number] Start Date: 04/11/23 Stop Date: 05/09/23 Status: Ordered lisinopril 20 mg oral tablet Start: 04/08/24 11:45:00 AM EST, 1 tab, PO, Daily, Disp# 90 tab, Refills: 3, Pharmacy: [facility] [id number] Start Date: 04/08/24 Status: Ordered metFORMIN 1000 mg oral tablet Start: 11/13/23 10:39:00 AM EDT, 1 tab, PO, bid, Disp# 180 tab, Refills: 3, Pharmacy: [facility] [id number] Start Date: 11/13/23 Status: Ordered sertraline 25 mg oral tablet Start: 11/13/23 10:39:00 AM EDT, 1 tab, PO, Daily, Disp# 90 tab, Refills: 3, Pharmacy: [facility] [id number] Start Date: 11/13/23 Status: Ordered verapamil 120 mg/24 hours oral capsule, extended release Start: 04/02/23 5:37:00 PM EST, 1 cap, PO, Daily, Disp# 90 cap, Refills: 3, Pharmacy: [facility] [id number] Start Date: 04/02/23 Status: Ordered Vitamin B12 [...] PRN: as needed for allergy symptoms, Pharmacy: [id number] Start Date: 04/04/23 Stop Date: 06/03/23 Status: Ordered Mental Status 04/22/24 Barriers to Learning one year None evide nt Mandatory Health Literacy Documentation Yes Health Literacy Communication Barriers N ever Primary Language Marshallese Problem List Condition Confirmation Course Effective Dates [...] retinopathy without macular edema, bilateral Confirmed Active Diagnosis Diagnosis Type Effective Dates Health Status Clinical Service Informant Bilateral primary osteoarthritis of knee Discharge Diagnosis 04/22/24 Left knee DJD Discharge Diagnosis 04/22/24 Procedures Procedure Date Related Diagnosis Body Site [...] 20wnl 21Colonoscopy normal- Repeat in 10 years. Social History Social History Type Response Smoking Status Never smoked cigaret kim Sex Female Sex Representation Female (finding) Outpatient Note * OBDULIA Tsang, Cj Kwok: PERFORM Event Display: .Outpt Note Authored Date: OUTPATIENT NOTE Name: CANDY GARCIA V Patient Number:1 [id number] : 1950 Date of Service: 04/22/2024 Chief complaint: Bilateral knee pain, left greater than right HPI: This 73-year-old female presents today for evaluation of her knees. She has had increasing pain in her knees over the last few months. I last saw her a year and 5 days ago. At that time, she wasconsidering total knee replacement for her left knee. She states the knee did very well all spring and summer. This fall began bothering her again. Her right knee is also bothering her. Left knee is l ateral and right knee is medial. She has had some minor swelling intermittently. She notes some loss of motion. She would like to try viscosupplementation injections in hopes of delaying surgery. Shestates she last had them approximately 2 years ago and they worked reasonably well. No additional co mplaints. Physical exam General: Well-developed, well-nourished, elderly female, in no acute distress. Sitting in a chair. Alert and oriented. Obvious discomfort from her knees. Skin: Warm dry with good turgor. No rashes. No ecchymosis or erythema. No intra- articular effusions. Musculoskeletal: The patient has full terminal extension of both knees. Flexion to 105 degrees she has focal discomfort with palpation over the lateral joint line of the left knee and medial joint line of the right knee. There is also medial joint line discomfort on the left knee, but it is not as severe. Crepitus is palpable with motion in both of the knees. Stable collateral ligaments. No palpable defect or discomfort with palpation over the patellar tendon or quadriceps tendon of either knee. Ambulating today with a slightly antalgic gait. Neurologic: Gross sensation is intact across both lower extremities by soft touch. Data: Radiographic imaging obtained today of both knees was interpreted by me and read by radiology. These were compared to her films from a year ago. She has significant osteoarthritic change of thelateral compartment of the left knee and medial compartment of the right knee. Periarticular osteophytes, subchondral sclerosis, and joint space narrowing are present in both knees. She has a windswept appearance. No fractures or loose bodies are noted. Impression: Bilateral knee DJD Plan: The patient was educated regarding today's findings. Conservative care measures were discussed. Option of corticosteroid injection, viscosupplementation injection, and total knee arthroplasty was discussed at length. She is a diabetic and does not want cortisone. She would like to try viscosupplementation to see if it provides improved comfort. I think it is reasonable. She understands thatif the injections do not help, she should start thinking about total knee arthroplasty over the spring or summer. Follow-up once her Euflexxa is authorized. She may use OTC medications as well as compression and ice for edema and pain control. This dictation has been completed using [employer] text voice recognition software. Grammatical errors, omissions, insertions, and misspellings may be present due to the limitations of the software. Electronic Signature on File Electronically Reviewed/Signed by: Cj Tsang PA-C Author Signature Dt/Tm:04/22/2024 06:02 PM Division of Sports Medicine Electronically Reviewed/Signed by: Nicolas Mayo MD Cosigner Signature Dt/Tm: 04/23/2024 06:28 AM Director Statistical Programming for Clinical Affairs, [facility] Professor in Orthopaedics Vinyl Top Installer, [facility] CDS Patient Care team information Care Team Personnel Name: MD Tarik, Amari Kelley Position: Physician - Family Med Member Role: Primary Care Provider Address: [address] [place] [id number] [place] Care Team Related Persons Name: LILIA GARCIA
--- OUTSIDE RECORDS SUMMARY | 2024-05-11 21:30 | External Medical Summary | Continuity of Care Document ---
Author Name Unknown Organization [address] [place] [phone] Care Team Providers Care National Insurance Officer Name Role Phone Amari Montanez Primary Care Physician [phone] [id number] Date(s): 04/29/24 - 04/29/24 [facility] 0 [facility] 207 [facility] [address] [address] [phone] Encounter Diagnosis Body mass index [BMI] 33.0-33.9, adult(Discharge Diagnosis) - 04/29/24 High blood pressure(Discharge Diagnosis) - 04/29/24 Sleep apnea(Discharge Diagnosis) - 04/29/24 Type 2 diabetes mellitus with mild nonproliferative diabetic retinopathy without macular edema, bilateral(Discharge Diagnosis) - 04/29/24 VAMSI on CPAP(Discharge Diagnosis) - 04/29/24 Type 2 diabetes mellitus with hemoglobin A1c goal of less than 7.0%(Discharge Diagnosis) - 04/29/24 Malaise and fatigue(Discharge Diagnosis) - 04/29/24 Medication monitoring encounter(Discharge Diagnosis) - 04/29/24 Bowel habit changes(Discharge Diagnosis) - 04/29/24 Major depression, recurrent(Discharge Diagnosis) - 04/29/24 Osteoarthritis of knee(Discharge Diagnosis) - 04/29/24 Arthrosis of left midfoot(Discharge Diagnosis) - 04/29/24 Discharge Disposition: Home or Self Care Attending Physician: MD Montanez Joseph P Allergies, Adverse Reactions, Alerts Substance Criticality Severity Reaction Reaction Severity Status Lipitor myalgias Active traMADol rash Active eggs cramps, stomach ache Active Allergy Not found in Search unknown abx- got really sick white gold-dermatitis Active Assessment and Plan Extracted from: Title:Office Visit Note Author:MD Tarik, Charles eph P Date:04/29/24 1.High blood pressure Chronic, stable at goal less than 140/90 mm Hg 2.Sleep apnea Chronic, stable on CPAP 5 cm h2o 3.Type 2 diabetes mellitus with mild nonproliferative diabetic retinopathy without macular edema, bilateral Chronic, needs A1C on metformin 4.VAMSI on CPAP chronic, stable 5.Bowel habit changes Inc water, Miralax and will refer to GI 6.Major depression, recurrent Chronic, stable on sertraline 25 mg and could try Wellbutrin XL 150 mg 7.Osteoarthritis of knee Exercise andsees Ortho - Tylenol or Alleve 1-2 tabs twice a day 8.Arthrosis of left midfoot Noted - Ortho caring for her. I have personally spent 33minutes performing mqhf-so-rqrl and tzf-csos-sf-face activities on this date of service. My activities included reviewing past records prior tothe encounter, reviewed past lab results,with extensive counseling. Immunizations Given and Recorded Vaccine Date Status [...] to physician's office: [address] Iván. [address] [place] [address], [place] [address], Stop: 05/14/24 11:48:00 AM EST, Pharmacy: [facility] Start Date: 04/23/24 Stop Date: 05/14/24 Status: Ordered hydrocortisone valerate 0.2% topical cream Start: 04/11/23 6:15:00 AM EST, 1 appl, topical, Daily, Disp# 45 g, Refills: 1, Pharmacy: [id number] Start Date: 04/11/23 Stop Date: 05/09/23 Status: Ordered lisinopril 20 mg oral tablet Start: 04/08/24 11:45:00 AM EST, 1 tab, PO, Daily, Disp# 90 tab, Refills: 3, Pharmacy: [id number] Start Date: 04/08/24 Status: Ordered metFORMIN 1000 mg oral tablet Start: 11/13/23 10:39:00 AM EDT, 1 tab, PO, bid, Disp# 180 tab, Refills: 3, Pharmacy: [id number] Start Date: 11/13/23 Status: Ordered sertraline 25 mg oral tablet Start: 11/13/23 10:39:00 AM EDT, 1 tab, PO, Daily, Disp# 90 tab, Refills: 3, Pharmacy: [id number] Start Date: 11/13/23 Status: Ordered verapamil 120 mg/24 hours oral capsule, extended release Start: 04/02/23 5:37:00 PM EST, 1 cap, PO, Daily, Disp# 90 cap, Refills: 3, Pharmacy: [id number] Start Date: 04/02/23 Status: Ordered Vitamin B12 [...] PRN: as needed for allergy symptoms, Pharmacy: [id number] Start Date: 04/04/23 Stop Date: 06/03/23 Status: Ordered Mental Status 04/29/24 Barriers to Learning one year None evide nt Mandatory Health Literacy Documentation Yes Health Literacy Communication Barriers N ever Primary Language Romanian Problem List Condition Confirmation Course Effective Dates [...] Effective Dates Health Status Clinical Service Informant Body mass index [BMI] 33.0-33.9, adult Discharge Diagnosis 04/29/24 Non-Specified Type 2 diabetes mellitus with mild nonproliferative diabetic retinopathy without macular edema, bilateral Discharge Diagnosis 04/29/24 Non-Specified Arthrosis of left midfoot Discharge Diagnosis 04/29/24 Non-Specified VAMSI on CPAP Discharge Diagnosis 04/29/24 Non-Specified Bowel habit changes Discharge Diagnosis 04/29/24 Non-Specified Major depression, recurrent Discharge Diagnosis 04/29/24 Non-Specified Sleep apnea Discharge Diagnosis 04/29/24 Non-Specified High blood pressure Discharge Diagnosis 04/29/24 Non-Specified Malaise and fatigue Discharge Diagnosis 04/29/24 Non-Specified Medication monitoring encounter Discharge Diagnosis 04/29/24 Non-Specified Type 2 diabetes mellitus with hemoglobin A1c goal of less than 7.0% Discharge Diagnosis 04/29/24 Non-Specified Osteoarthritis of knee Discharge Diagnosis 04/29/24 Non-Specified Procedures Procedure Date Related Diagnosis Body Site [...] Mammogram 15 12/08/18 Completed Papanicolaou smear 11/02/18 [facility] pancho Diabetic retinal eye exam 16 09/17/18 Completed Mammogram 17 11/18/17 Completed Eye examination 18 09/19/17 [facility] pancho Colonoscopy 19 03/18/17 Completed Papanicolaou smear [...] 20wnl 21Colonoscopy normal- Repeat in 10 years. Vital Signs Most recent to oldest [Reference Range]: 1 Height 164.4 cm (04/29/24 4:12 PM) Patient Weight 89.8 kg (04/29/24 4:12 PM) Body Mass Index 33.23 kg/m2 (04/29/24 4:12 PM) Heart Rate 50 bpm (04/29/24 4:12 PM) Respiratory Rate 12 br/min (04/29/24 4:12 PM) Blood Pressure 138/80mmHg (04/29/24 4:12 PM) Cuff Pulse Pressure 58 mmHg (04/29/24 4:12 PM) Social History Social History Type Response Smoking Status Never smoked cigaret kim Sex Female Sex Representation Female (finding) [facility] Outpt Note * MD Tarik, Amari P: PERFORM Event Display: [facility] Outpt Note Authored Date: [id number] Chief Complaint F/u multipul issues History of Present Illness Bowels have been pasty and difficulty wiping clean. Now more constipated or takes prunes and wants to see GI. Did lose control of bowels twice. Took Miralax aswell. Colonoscopy in 2022. Ordered "Reina" on line from GI doctor to help with bowels. Also ordered supplement to help lose weight. Mentally, feels well on sertraline 25 mg. DM - due for labs. Not exercising as she "needs to" - does chair exercise for an hour 3-4 times a week. Using CPAP - report reviewed. She "loves the CPAP!" Knee pain - saw Ortho and has OA and spurs. She feels she has some ADHD. Daughter has as well. Vitals:Last Updated 04/29/24 16:12 Date Temp BP Location Pulse RR SpO2 Pain 04/29/24 138/80 50 12 98 0 04/22/24 6 10/01/23 124/64 Left Arm 60 98 Vital Signs are the last 3 documented. No Orthostatic Data Available Height and Weight:Last Updated 04/29/24 16:12 Date BMI Wt(kg) Wt(lb) Method Ht(cm) (ft-in) Method 04/29/24 33.23 89.8 198 Standing Scale 164.4 5-4 Standing 10/01/23 84.5 186 Standing Scale 09/01/23 85.2 187 Standing Scale Heights and Weights are the last 3 documented. Physical Exam Vitals & Measurements HR:50(Monitored) RR:12 BP:138/80 SpO2:98% HT:164.4cm WT:89.800kg(Dosing) WT:89.8kg BMI:33.23 PHQ2 Data(Data Documented on:04/29/2024 16:12) Emotional health assessment NEGATIVE Gen - no acute distress Heart - regular Lungs - clear Abd- soft, full/constipation with dull percussion Assessment/Plan 1.High blood pressure Chronic, stable at goal less than 140/90 mm Hg 2.Sleep apnea Chronic, stable on CPAP 5 cm h2o 3.Type 2 diabetes mellitus with mild nonproliferative diabetic retinopathy without macular edema,bilateral Chronic, needs A1C on metformin 4.VAMSI on CPAP chronic, stable 5.Bowel habit changes Inc water, Miralax and will refer to GI 6.Major depression, recurrent Chronic, stable on sertraline 25 mg and could try Wellbutrin XL 150 mg 7.Osteoarthritis of knee Exercise andsees Ortho - Tylenol or Alleve 1-2 tabs twice a day 8.Arthrosis of left midfoot Noted - Ortho caring for her. I have personally spent 33minutes performing vzam-fz-oqtr and xtu-eend-vz-face activities on thisdate of service. My activities included reviewing past records prior tothe encounter, reviewed past lab results,with extensive counseling. Problem List/Past Medical History Ongoing Arthrosis of left midfoot Chronic dermatitis Eczema High blood pressure History of positive PPD Hyperlipidemia Major depression, recurrent Meningioma VAMSI on CPAP Osteoarthritis of knee Sensorineural hearing loss Sleep apnea Spinal stenosis Tinnitus, bilateral Type 2 diabetes mellitus with mild nonproliferative diabetic retinopathy without macular edema, bilateral Resolved Diabetes mellitus with diabetic peripheral angiopathy without gangrene Pneumonia TB (tuberculosis) Procedure/Surgical History Colonoscopy| Service Date: 03/26/2023Ultrasound scan of thyroid| Service Date: 12/20/2022Ultrasound of soft tissue of head and neck| Service Date: 3Plain X-ray of bilateral clavicles| Service Date: 3CT of cervical spine| Service Date: 3CT of head| Service Date: 3CXR - Chest X-ray| Service Date: 1DEXA of hip and spine| Service Date: 01/23/2021Mammogram| Service Date: 1Cataract surgery OD| Service Date: 05/04/2019Cataract surgery- OS| Service Date: 04/20/2019Shoulder X-ray| Service Date: 04/08/2019X-rayof right foot| Service Date: 04/08/2019Examining eye| Service Date: 03/02/2019DEXA (dual energy X-ray absorptiometry) of lateral spine| Service Date: 01/22/2019Mammogram| Service Date: 12/08/2018Papanicolaou smear| Service Date: 11/02/2018Diabetic retinal eye exam| Service Date: 09/17Mammogram| Service Date: 11/18/2017Eye examination| Service Date: 09/19/2017Colonoscopy| Service Date: 03/18/2017Papanicolaou smear for cervical cancer screening| Service Date: 10/25/2016Mammogram| Service Date: 09/25/2016DEXA - Dual energy X-ray photon absorptiometry| Service Date: 09/14/2015PAP test date| Service Date: 09/01/2015Colonoscopy| Service Date: 10/07/2005ppendectomy| Service Date: 1957Bronchoscopy Medications ascorbic acid(Vitamin C), PO, Daily cetirizine(ZyrTEC 10 mg oral tablet), 10 mg= 1 tab, PO, Daily, PRN, 1 refills cholecalciferol(Vitamin D3), See Instructions cyanocobalamin(Vitamin B12 1000 mcg oral tablet), 1000 mcg= 1 tab, PO, Daily hydrocortisone topical(hydrocortisone valerate 0.2% topical cream), 1 appl, topical, Daily, 1 refills lisinopril(lisinopril 20 mg oral tablet), 1 tab, PO, Daily metFORMIN(metFORMIN 1000 mg oral tablet), 1 tab, PO, bid sertraline(sertraline 25 mg oral tablet), 1 tab, PO, Daily sodium hyaluronate(Euflexxa 10 mg/mL intra-articular solution), 20 mg, intra- articular, q7days verapamil(verapamil 120 mg/24 hours oral capsule, extended release), 1 cap, PO, Daily zinc sulfate(Zinc), PO, Daily Allergies Allergy Not found in Searchunknown abx- got really sick, white gold-dermatitis Lipitormyalgias eggscramps, stomach ache traMADolrash Social History Smoking Status Never smoked cigarettes Alcohol - Denies Alcohol Use Exercise - Comments: has not been exercising recently Nutrition/Health Diet description:health conscious, diabetic diet Substance Abuse - Denies Substance Abuse Tobacco - Denies Tobacco Use Use:Never smoker Family History Alcohol abuse: Father. Diabetes: Unknown. Diabetes mellitus: MGF. Heart disease: Father and MGF. Hypertension: Brother. Kidney disease: Father. Tobacco abuse: Mother. Health Status Family Member(s) Immunizations Vaccine Date Status pneumococcal 23-valent vaccine 03/12/2022 Given influenza virus vaccine, inactivated 03/12/2022 Given zoster vaccine, inactivated 04/02/2021 Recorded influenza virus vaccine, inactivated 03/27/2020 Given tetanus/diphtheria/pertuss, acel (Tdap) 09/28/2019 Given influenza virus vaccine, inactivated 02/04/2018 Recorded Comments : 2018-05-19: Historical information-source unspecified influenza virus vaccine, inactivated 12/31/2016 Given tetanus/diphtheria/pertuss, acel (Tdap) - Not Given Comments : Expectation Not Necessary zoster vaccine live 11/15/2015 Given Comments : Other : busy pneumococcal 13-valent vaccine 11/15/2015 Given Comments : Other : busy pneumococcal 23-valent vaccine 04/14/2013 Recorded Recommendations Health Maintenance Pending(in the next year) OverDue Medicare Annual Wellness Visit due03/12/23and every 1year Adult Influenza Vaccine due10/13/23and every 1year Due Adult COVID-19 Vaccination due04/29/24Unknown Frequency Adult Social Determinants of Health Screening due04/29/24Unknown Frequency Falls Plan of Care due04/29/24Unknown Frequency Shingles Vaccine due04/29/24One-time only Due In Future Diabetes Management A1c not due until09/01/24and every day Satisfied(in the past 1 year) Satisfied Body Mass Index on04/29/24.Satisfied by ANU [place] Breast Cancer Screening on02/17/24.Satisfied by RODNEY Gleason Lynnae Diabetes Management A1c on09/01/23.Satisfied by Contributor_system, Social IQ (Social Influence Quotient) Diabetic Eye Exam on11/05/23.Satisfied by RODNEY Gleason Lynnae Electronic Signature on File Electronically Reviewed/Signed by: Amari Montanez MD Author Signature Dt/Tm:04/29/2024 05:17 PM Department of Family Medicine [facility] Patient Care team information Care Team Personnel Name: MD Tarik, Amari Kelley Position: Physician - Family Med Member Role: Primary Care Provider Address: [address] [place] [address] Care Team Related Persons Name: LILIA GARCIA
[2024-05-11] MEDS: SODIUM ZIRCONIUM CYCLOSILICATE 10 GM PACKET PO SCH (21:55)
[2024-05-11] MEDS ORDERED: GLUCOSE 40% GEL 15 GM TUBE PO PRN (22:31)
[2024-05-11] MEDS ORDERED: CARBOHYDRATES FOR HYPOGLYCEMIA PO PRN (22:31)
[2024-05-11] MEDS ORDERED: DEXTROSE 50% 50 ML SYRINGE IV PRN (22:31)
[2024-05-11] MEDS ORDERED: GLUCAGON FOR INJ 1 MG VIAL SQ PRN (22:31)
[2024-05-11] MEDS ORDERED: GLUCOSE 10 TAB/TUBE PO PRN (22:31)
[2024-05-12] MEDS: INSULIN ASPART PER UNIT CHARGE SC SCH (07:50)
[2024-05-12 07:51] LABS: Basophils # (auto) 0.05 K/uL (0.00-0.20); Basophils % (auto) 0.6 %; Eosinophils # (auto) 0.15 K/uL (0.00-0.50); Eosinophils % (auto) 1.7 %; Hematocrit (blood only) 36.6 % (37.0-47.0); Hemoglobin 11.9 g/dl (12.0-16.0); Immature Granulocytes # (auto) 0.03 K/uL (0.01-0.20); Immature Granulocytes % (auto) 0.3 %; Lymphocytes % (auto) 44.8 %; Mean Corpuscular Hemoglobin 29.1 pg (25.0-34.0); Mean Corpuscular Hgb Conc 32.5 g/dL (32.0-36.0); Mean Corpuscular Volume 89.5 fL (80.0-100.0); Mean Platelet Volume 11.3 fL (9.4-12.4); Monocytes # (auto) 0.88 K/uL (0.11-0.59); Monocytes % (auto) 9.9 %; Neutrophils # (auto) 3.82 K/uL (1.40-6.50); Neutrophils % (auto) 42.7 %; Platelet Count 245 K/uL (130-400); RDW Coefficient of Variation 14.2 % (11.5-14.5); RDW Standard Deviation 46.1 fL (36.4-46.3); Red Blood Count 4.09 M/uL (4.20-5.40); White Blood Count 8.93 K/ul (4.8-10.8)
[2024-05-12 08:11] LABS: BUN Creatinine Ratio 19.5 (10-20); Calcium 9.8 mg/dl (8.6-10.3); Potassium 5.4 mmol/L (3.5-5.1)
--- NOTE | 2024-05-12 08:46 | Electrocardiogram Report ---
Test Reason : Blood Pressure : */* mmHG Vent. Rate : 52 BPM Atrial Rate : * BPM P-R Int : * ms QRS Dur : 94 ms QT Int : 386 ms P-R-T Axes : * 58 53 degrees QTcB Int : 358 ms Junctional rhythm with retrograde conduction prominent T waves consider hyperkalemia Abnormal ECG When compared with ECG of 21-Jun-2022 15:59, Junctional rhythm has replaced Sinus rhythm Confirmed by Soila Miller (Ramon) on 05/12/2024 8:46:41 AM Referred By: Amari Montanez Confirmed By: Soila Miller
--- NOTE | 2024-05-12 08:47 | Electrocardiogram Report ---
Test Reason : Blood Pressure : */* mmHG Vent. Rate : 56 BPM Atrial Rate : 56 BPM P-R Int : 160 ms QRS Dur : 80 ms QT Int : 400 ms P-R-T Axes : 65 62 65 degrees QTcB Int : 386 ms Sinus bradycardia Otherwise normal ECG When compared with ECG of 11-May-2024 14:27, (unconfirmed) Sinus rhythm has replaced Junctional rhythm T waves have normalized Confirmed by Soila Miller (Ramon) on 05/12/2024 8:47:15 AM Referred By: Amari Montanez Confirmed By: Soila Miller
--- NOTE | 2024-05-12 08:56 | Cardiology Consultation ---
Date of Consultation May 12, 2024 Assessment & Plan (1) Chest pain: (2) Hyperkalemia: (3) Left ventricular outflow tract obstruction: (4) Hypertensive heart disease: (5) Junctional bradycardia: (6) PJ (acute kidney injury): (7) Sleep apnea: Plan Will plan on doing a stress echo tomorrow to assess for ischemia. Her description of chest pain is significant and sounds suspicious particularly given her diabetes. Depending on the results of the stress test further re commendations will follow. When we bring her down to do the stress echo I will also repeat additional echo images to look for an LV outflow track gradient. That was not done on today's study. We can resume her verapamil after her stress test. Depending on the results of the test further recommendations will follow. History of Present Illness Reason for Consultation: hyperkalemia; prior hx of ?LVOT gradient and hypertrophic cardiomyopathy Requesting Physician: Dr. Johnson Attending Physician: Barbra Wright MD History of Present Illness I discussed this case last pm with Dr. Johnson. She normally sees Dr. Lemus and saw him last in September 2023 for her routine annual visit. She apparently has a prior hx of a mid LV outflow tract gradient that resolved with treatment with verapamil and lisinopril for her HTN. Trenton Mccray is a 73 year old female who presents to the ER with palpitations and shortness of breath yesterday afternoon. She finds it difficult to explain her symptoms and changes her story often but reportedly initial symptom started 2.5 weeks ago while taking her granddaughter to the doctor she had chest tightness, palpitations and short of breath. Because she was with her granddaughter she felt she had to hied her symptoms but she did have to sit down and symptoms resolved in 30 minutes. Worse on exertion and deep breathing. Since this time she has had intermittent episodes although unclear how long these are lasting. Yesterday she felt a strong heart beat with shortness of breath possibly after exercising. Today she woke up with paresthesias in bilateral finger tips. No weakness or muscle twitching. She denies any chest pain but calls it more of a tightness whenever she has these palpations. At rest she currently feels very mildly short of breath. Her initial EKG shows a junctional escape rhythm with prominent T waves consistent with hyperkalemia. Her potassium on admission was 6.4 I could not find a prior outpatient EKG or echo to review and compare. She tells me that in the recent past she has been trying to eat much healthier with lots of fruits and vegetables to better control her diabetes. She also described an episode of CP/heaviness to me which was when she started to not feel right. She was with her granddaughters appt at [facility] and began getting CP/tightness which scared her. She had to stop-it lasted about 15-20 minutes and resolved. Allergies Allergy/AdvReac Type Severity Reaction Status Date / Time silicone Allergy Severe Lip Unverified 05/11/24 17:10 swelling tramadol Allergy Severe Swelling Verified 05/11/24 17:10 of Lip/Tongue/Throat Yfvswrb-CRG-WlB Reductase Allergy Mild "just Verified 05/11/24 17:10 Inhibitor didn't go [Wytwgga-Syu-Hfq Reductase over well" Inhibitor] egg AdvReac Intermediate abdominal Verified 05/11/24 17:10 pain/diarrhea Home Medications Medication Instructions Recorded Confirmed Type metformin 1,000 mg tablet 1,000 mg PO BID 03/24/19 05/11/24 History sertraline 25 mg tablet 25 mg PO QAM 05/24/21 05/11/24 History cyanocobalamin (vitamin B-12) 1,000 mcg PO DAILY 10/22/22 05/11/24 History 1,000 mcg tablet lisinopril 20 mg tablet 20 mg PO QAM 10/22/22 05/11/24 History verapamil 120 mg 24 hr 120 mg PO QAM 10/22/22 05/11/24 History capsule,extended release zinc 50 mg tablet 50 mg PO DAILY 10/22/22 05/11/24 History ascorbic acid (vitamin C) 500 mg 500 mg PO BID 03/18/23 05/11/24 History tablet (Vitamin C) cholecalciferol (vitamin D3) 25 25 mcg PO BID 03/18/23 05/11/24 History mcg (1,000 unit) tablet (Vitamin D3) Patient History Medical History GERD (gastroesophageal reflux disease) Anxiety Hx of concussion 2022>was having problems with commuication but no long lasting problems Hx of vertigo Hx of tuberculosis no signs/symptoms currently>dx 1973 Sciatic nerve pain Spinal stenosis Osteoarthritis Stress incontinence Diabetes mellitus, type [address] Lemus Sleep apnea no device "lost weight" Surgical History History of tooth extraction History of cataract surgery rt/left History of bronchoscopy History of colonoscopy History of appendectomy Family History Grandfather (Maternal) Diabetes Hypertension Grandmother (Maternal) Hypertension great-grandmother Father Heart disease Other No family history of adverse response to anesthesia No family history of bleeding disorder Social History Smoking Status: Never smoker Second Hand Exposure: No; Do You Dip or Chew Tobacco: No; Hx Alcohol Use: No Hx Substance Use: No Preferred Language: Vietnamese Communication Ability: Effective Mortician Helper Required: No Beliefs That Will Affect Care: None marital status: Current Living Situation: Spouse current occupational status: retired Feels Safe at Home: Yes Safety Concerns: Feels Safe At This Time Assistive Devices: Glasses Review of Systems Review of Systems: All systems reviewed & are unremarkable except as noted in HPI & below Physical Exam Physical Exam: AAO x 3 in NAD Respiratory: normal respiratory effort, lungs clear to auscultation Cardiovascular: soft MARTÍN at base Results & Data Vital Signs (Past 12 Hours) Vital Signs Temp Pulse Pulse Resp BP BP Pulse Ox 05/12/24 07:09 36.4 C L 63 18 103/63 93 05/12/24 03:47 36.5 C 53 L 18 95/53 L 99 05/11/24 23:28 36.4 C L 58 L 18 103/56 L 93 05/11/24 21:45 62 05/11/24 21:00 O2 Del Method 05/12/24 07:09 Room Air 05/12/24 03:47 CPAP 05/11/24 23:28 Room Air 05/11/24 21:45 05/11/24 21:00 Room Air Laboratory Results Abnormal lab results 05/11/24 05/11/24 05/11/24 Range/Units 14:31 16:33 18:22 WBC 11.30 H (4.8-10.8) K/ul RBC (4.20-5.40) M/uL Hgb (12.0-16.0) g/dl Hct (37.0-47.0) % MCHC 31.5 L (32.0-36.0) g/dL RDW Std Deviation 47.8 H (36.4-46.3) fL Lymph # (Auto) 4.49 H (1.20-3.40) K/uL [place] # (Auto) 1.09 H (0.11-0.59) K/uL Sodium 133 L (136-145) mmol/L Potassium 6.4 H* 5.4 H (3.5-5.1) mmol/L Chloride (98-107) mmol/L BUN 27 H (6-23) mg/dl Creatinine 1.44 H (0.6-1.2) mg/dl Glucose 112 H (70-99(Fasting)) mg/dl POC Glucose 132 H (70-99) mg/dl 05/11/24 05/12/24 05/12/24 Range/Units 20:47 00:11 07:15 WBC (4.8-10.8) K/ul RBC 4.09 L (4.20-5.40) M/uL Hgb 11.9 L (12.0-16.0) g/dl Hct 36.6 L (37.0-47.0) % MCHC (32.0-36.0) g/dL RDW Std Deviation (36.4-46.3) fL Lymph # (Auto) 4.00 H (1.20-3.40) K/uL [place] # (Auto) 0.88 H (0.11-0.59) K/uL Sodium (136-145) mmol/L Potassium 5.5 H 5.4 H (3.5-5.1) mmol/L Chloride 108 H (98-107) mmol/L BUN (6-23) mg/dl Creatinine (0.6-1.2) mg/dl Glucose (70-99(Fasting)) mg/dl POC Glucose 136 H (70-99) mg/dl Diagnostic Findings Echo reviewed-moderate LVH with hyperdynamic LV function with near cavity obliteration LVOT gradients not done on ECHO will repeat tomorrow with stress test. Medications Administered Current Inpatient Medications Dextrose (Dextrose 50% 50 Ml Syringe) 25 - 50 ml IV UD PRN; Protocol PRN Reason: Hypoglycemia Protocol Stop: 06/10/24 22:30 Glucagon (Glucagon For Inj 1 Mg Vial) 1 mg SQ UD PRN; Protocol PRN Reason: Hypoglycemia Protocol Stop: 06/10/24 22:30 Glucose (Glucose 40% Gel 15 Gm Tube) 15 - 30 gm PO UD PRN; Protocol PRN Reason: Hypoglycemia Protocol Stop: 06/10/24 22:30 Glucose (Glucose 10 Tab/Tube) 4 - 8 tab PO UD PRN; Protocol PRN Reason: Hypoglycemia Protocol Stop: 06/10/24 22:30 Insulin Aspart (Insulin Aspart Per Unit Charge) 0 units SC ACHS [facility] Stop: 06/11/24 07:29 Miscellaneous (Carbohydrates For Hypoglycemia ) 15 - 30 gm PO UD PRN PRN Reason: Hypoglycemia Protocol Stop: 06/10/24 22:30 Sertraline HCl (Sertraline Hcl 50 Mg Tablet) 25 mg PO QAM [facility] Stop: 06/11/24 08:59 Sodium Zirconium Cyclosilicate (Sodium Zirconium Cyclosilicate 10 Gm Packet) 10 gm PO TID [facility] Stop: 05/13/24 14:01 Last Admin: 05/11/24 21:55 Dose: 10 gm ECG Additional Comments: EKG done this morning shows normal sinus rhythm the prominent T waves have resolved and normal sinus rhythm has replaced junctional escape rhythm.
[2024-05-12] MEDS: SERTRALINE HCL 50 MG TABLET PO SCH (09:02)
[2024-05-12 09:18] LABS: Estimated Average Glucose 166 mg/dl; Hemoglobin A1C 7.4 % (4.5-5.6)
--- NOTE | 2024-05-12 13:35 | Hospitalist Progress Note ---
Date of Service May 12, 2024 Assessment & Plan (1) Hyperkalemia: Plan: Symptomatic with hand numbness and EKG changes Possibly due to a combination of dehydration leading to PJ, high potassium diet, taking lisinopril Monitor on telemetry Calcium gluconate, Insulin/dextrose given in the ER On Lokelma 10g PO TID Hold lisinopril Low potassium diet Repeat potassium 5.4, will repeat q6h. Give further insulin /dextrose if K rising, repeat calcium gluconate if K > 6 (2) Junctional bradycardia: Plan: Cardiology planning to do a stress echocardiogram 05/13. Her description of chest pain is worrisome given her diagnosis of diabetes. The patient also has a history of left ventricular outflow obstruction. Further echo images to look for LV outflow tract gradient per cardiology Verapamil can be resumed after stress test tomorrow. (3) PJ (acute kidney injury): Plan: Mild, push PO fluids Resolved Repeat BMP in AM Keep lisinopril on hold Plan VTE Prophylaxis - low risk Diet - low potassium Admission and Anticipated Discharge Date Admission Date: May 11, 2024 Subjective Patient was seen and examined at 10:20 AM. Denies chest pain or shortness of breath currently. She tells me that she spoke to the anesthesiology tech who ordered a stress test for tomorrow. Review of Systems Review of Systems: All systems reviewed & are unremarkable except as noted in Subjective Physical Exam Physical Exam: General: Awake, conversant Heart: S1, S2/regular rate and rhythm, no murmur rubs or gallops Lungs: Clear to auscultation bilaterally. Normal effort Abdomen: Soft/nontender/nondistended. No hepatosplenomegaly Extremities: No clubbing/cyanosis. No edema Behavior: Appropriate, cooperative Results & Data Results & Data Vital Signs (Past 12 Hours) Vital Signs Temp Pulse Resp BP BP Pulse Ox O2 Del Method 05/12/24 11:11 36.7 C 58 L 18 104/65 97 Room Air 05/12/24 09:13 Room Air, CPAP 05/12/24 07:09 36.4 C L 63 18 103/63 93 Room Air 05/12/24 03:47 36.5 C 53 L 18 95/53 L 99 CPAP PG Care Time/CCT Total # of Minutes Spent Total Time Spent with Patient: Total time spent is greater than 50% in coordination of care (as documented) at patient's floor/unit and/or counseling patient: Coding Level of Care Code 83791 SUB INP/OBS CARE 235MIN Diagnoses Hyperkalemia E87.5 Junctional bradycardia R00.1 PJ (acute kidney injury) N17.9
--- NOTE | 2024-05-12 14:50 | Ultrasound Report ---
RENAL ULTRASOUND CLINICAL HISTORY: hyperkalemia in diabetes COMPARISON STUDY: None TECHNIQUE: Sonography of the kidneys and the urinary bladder was performed. FINDINGS: The right kidney measures 8.8 cm in maximal dimension and the left measures 9.7 cm. There i s no hydronephrosis. Renal echogenicity, cortical thickness and size are within normal limits. Bladde r is suboptimally assessed given underdistention. Both ureteral jets were identified. Bladder wall th ickening is noted. IMPRESSION: 1. Unremarkable sonographic appearance of the kidneys. No hydronephrosis. 2. Nonspecific bladder wall thickening accentuated by underdistention. ACT 112: Negative or not required by law. Electronically signed by: Brennen Adler M.D. 05/12/2024 2:48 PM
[2024-05-12 22:48] VITALS: TEMP 97.9
[2024-05-13 07:42] VITALS: PULSE 69; O2SAT 94
[2024-05-13 08:15] LABS: BUN Creatinine Ratio 19.7 (10-20); Calcium 9.8 mg/dl (8.6-10.3); Creatinine Clr Calc Pharmacy 46.2 ml/min; Potassium 4.8 mmol/L (3.5-5.1)
--- NOTE | 2024-05-13 08:35 | Electrocardiogram Report ---
Test Reason : Blood Pressure : */* mmHG Vent. Rate : 63 BPM Atrial Rate : 63 BPM P-R Int : 144 ms QRS Dur : 90 ms QT Int : 410 ms P-R-T Axes : 69 69 50 degrees QTcB Int : 419 ms Normal sinus rhythm Normal ECG When compared with ECG of 12-May-2024 06:24, No significant change was found Junctional Rhythm has resolved and T waves have normalized Confirmed by Soila Miller (Ramon) on 05/13/2024 8:35:18 AM Referred By: Amari Montanez Confirmed By: Soila Miller
--- NOTE | 2024-05-13 11:48 | Discharge Summary ---
Date of Service May 13, 2024 Admission HPI Per Admitting Provider Trenton Mccray is a 73 year old female who presents to the ER with palpitations and shortness of breath. She finds it difficult to explain her symptoms and changes her story often but reportedly initial symptom started 2.5 weeks ago while taking her granddaughter to the doctor she had chest tightness, palpitations and short of breath. Because she was with her granddaughter she felt she had to hied her symptoms but she did have to sit down and symptoms resolved in 30 minutes. Worse on exertion and deep breathing. Since this time she has had intermittent episodes although unclear how long these are lasting. Yesterday she felt a strong heart beat with shortness of breath possibly after exercising. Today she woke up with paresthesias in bilateral finger tips. No weakness or muscle twitching. She denies any chest pain but calls it more of a tightness whenever she has these palpations. At rest she currently feels very mildly short of breath. She denies dizziness, claudications, leg swelling. She reports 9lb of weight gain over the holidays but feels this is diet related rather than water weight. She reports dramatic change in diet the last week with eating much more fruits, nuts, seeds, water. No salt substitute. No new medication changes recently. Admission Exam Per Admitting Provider Constitutional: WD/WN, vitals as above Respiratory: normal respiratory effort, lungs clear to auscultation Cardiovascular: Rate/Rhythm: regular rhythm and + bradycardic Heart Sounds: no murmur Gastrointestinal (Abdomen): normal bowel sounds, soft, nontender, no hepatosplenomegaly Principal Diagnosis Hyperkalemia Acute kidney injury Junctional bradycardia Discharge Exam General: Awake, conversant Heart: S1, S2/regular rate and rhythm, no murmur rubs or gallops Lungs: Clear to auscultation bilaterally. Normal effort Abdomen: Soft/nontender/nondistended. No hepatosplenomegaly Extremities: No clubbing/cyanosis. No edema Behavior: Appropriate, cooperative Discharge Data Allergies Allergy/AdvReac Type Severity Reaction Status Date / Time silicone Allergy Severe Lip Unverified 05/11/24 17:10 swelling tramadol Allergy Severe Swelling Verified 05/11/24 17:10 of Lip/Tongue/Throat Xydljpe-EFY-MiG Reductase Allergy Mild "just Verified 05/11/24 17:10 Inhibitor didn't go [Fatwutr-Gvf-Qwi Reductase over well" Inhibitor] egg AdvReac Intermediate abdominal Verified 05/11/24 17:10 pain/diarrhea Consultations 05/11/24 15:25 ED Decision to Admit Stat 05/11/24 21:48 Consult Cardiology Routine Ordered Studies Chest X-Ray 05/11/24 14:14 XR chest 1V not portable CLINICAL HISTORY: Chest pain, nonspecific COMPARISON STUDY: Chest radiograph April 13, 2021. FINDINGS: Lung volumes are normal. Lungs are clear. Stable calcified granulomas within the right lower lung. There is no pneumothorax or pleural effusion. Cardiac size is normal. Mediastinal contours are normal. There is no evidence for pulmonary edema. IMPRESSION: No acute cardiopulmonary findings. No change in appearance of the chest. ACT 112: Negative or not required by law. Electronically signed by: Brennen Adler M.D. 05/11/2024 3:22 PM Renal Ultrasound 05/12/24 10:03 RENAL ULTRASOUND CLINICAL HISTORY: hyperkalemia in diabetes COMPARISON STUDY: None TECHNIQUE: Sonography of the kidneys and the urinary bladder was performed. FINDINGS: The right kidney measures 8.8 cm in maximal dimension and the left measures 9.7 cm. There is no hydronephrosis. Renal echogenicity, cortical thickness and size are within normal limits. Bladder is suboptimally assessed given underdistention. Both ureteral jets were identified. Bladder wall thickening is noted. IMPRESSION: 1. Unremarkable sonographic appearance of the kidneys. No hydronephrosis. 2. Nonspecific bladder wall thickening accentuated by underdistention. ACT 112: Negative or not required by law. Electronically signed by: Brennen Adler M.D. 05/12/2024 2:48 PM 05/12/24 10:03 US Kidney Bladder [US renal/blad retro comp] Routine Hospital Course (1) Hyperkalemia: Symptomatic with hand numbness and EKG changes Possibly due to a combination of dehydration leading to PJ, high potassium diet, taking lisinopril Monitor on telemetry Calcium gluconate, Insulin/dextrose given in the ER On Lokelma 10g PO TID Hold lisinopril Low potassium diet Resolved Will discharge off of lisinopril Encourage patient to avoid a high potassium diet (2) Junctional bradycardia: Her description of chest pain is worrisome given her diagnosis of diabetes. Cardiology involved. Stress test was completed today that was negative. The patient also has a history of left ventricular outflow obstruction. Cardiology recommended increasing the dose of verapamil to 240 mg (3) PJ (acute kidney injury): Mild, push PO fluids Resolved Keep lisinopril on hold Plan VTE Prophylaxis - low risk Diet - low potassium Total Time Total Time Spent Total Time Spent (In Minutes): 35 Discharge Plan Discharge Items Patient Disposition: Home - Self-Care Reason For Visit: HYPERKALEMIA Discharge Diagnosis: Hyperkalemia Acute kidney injury Junctional bradycardia Activity: Resume your previous activity Non-emergency contact: Primary Care Provider Call non-emergency contact if: you have any medication questions and your symptoms worsen Follow-up/Referrals: Amari Montanez MD [Primary Care Provider] - (Follow up in 1 week) Diet: Carb Consistent or DM2, Heart Healthy and Low Potassium (2gm) Addtl Attending Provider Instructions: Advised to follow-up with PCP in 1 week Advised to follow-up with medical technologist in 2 weeks Advised to note that lisinopril has been discontinued Advised to note that the dose of verapamil has been increased to 240 mg Advised on a low potassium diet Pending Studies at Discharge: No Stand-Alone Forms: My [facility] Medications and DC Order Prescriptions: New verapamil 240 mg capsule,ext rel. pellets 24 hr 240 mg PO DAILY Qty: 30 0RF Continued sertraline 25 mg tablet 25 mg PO QAM cyanocobalamin (vitamin B-12) 1,000 mcg tablet 1,000 mcg PO DAILY metformin 1,000 mg Tablet 1,000 mg PO BID zinc 50 mg tablet 50 mg PO DAILY ascorbic acid (vitamin C) [Vitamin C] 500 mg Tablet 500 mg PO BID cholecalciferol (vitamin D3) [Vitamin D3] 25 mcg (1,000 unit) Tablet 25 mcg PO BID Discontinued lisinopril 20 mg tablet 20 mg PO QAM verapamil 120 mg capsule,ext rel. pellets 24 hr 120 mg PO QAM Discharge Orders: Discharge Order (Routine); Ordered 05/13/24 Ordered By: Barbra oBnilla/Other Patient Handouts: High Blood Sugar (Hyperglycemia), Hypoglycemia (Low Blood Sugar), Resources for People with Diabetes, Managing Type 2 Diabetes, Hyperkalemia Dc, Low Potassium Diet Dc, ED Hyperkalemia Admission Data Admit Date/Time: 05/11/24 17:17 Attending Provider: Barbra Wright Admit Provider: Von Johnson Primary Care Provider: Amari Montanez Other Providers: Von Johnson; Soila Miller Other Interventions: Discharge Summary Assessment (RN) Last Done: 05/13/24 12:19
[2024-05-13 12:20] VITALS: BP 103/63
--- NOTE | 2024-05-13 13:24 | Cardiology Progress Note ---
Date of Service May 13, 2024 Assessment & Plan (1) Chest pain: (2) Hyperkalemia: (3) Left ventricular outflow tract obstruction: (4) Hypertensive heart disease: (5) Junctional bradycardia: (6) PJ (acute kidney injury): (7) Sleep apnea: Plan Her stress echo appears normal. I would consider keeping her off of the lisinopril for now so we can follow-up on blood work as an outpatient make sure her potassium stays normal. We may be able to repeat initiate low-dose of VEE inhibitor or ARB given her diabetes as an outpatient. For now I would increase her verapamil dose to 240 mg daily for the LVH diastolic dysfunction as well as the dynamic LV outflow tract gradient. She did have a prior cardiac MRI back in 2013 which was negative for a hypertrophic cardiomyopathy. I suspect that her LV thickness may be hypertensive related. From a cardiovascular standpoint given that her potassium has normalized her EKG has normalized and her stress echo was unremarkable she can be discharged home. We have her follow-up with Dr. Lemus in the next 2 to 3 weeks. Will check outpatient labs on her and if her labs remain normal, would consider restarting a low-dose of VEE or ARB given her diabetes. Thank you for allow me to participate in the care of this very nice lady and Marlon Nash!! Admission and Anticipated Discharge Date Admission Date: May 11, 2024 Subjective The patient was seen and examined in the cardiology department for her stress test. She was able to ambulate using protocol for 6 minutes without any symptoms however she did have EKG changes I suspect this is related to her LVH seen on her baseline EKG and echo. The echo portion of her stress test looks normal with overall appropriate improvement in the left ventricular ejection fraction with stress. There were no wall motion abnormalities identified. We did do additional Doppler imaging on her and she does have amild mid LV outflow track dynamic gradient at rest which does not worsen with stress. Review of Systems Review of Systems: All systems reviewed & are unremarkable except as noted in HPI & below Physical Exam Physical Exam: no change Results & Data Vital Signs (Past 12 Hours) Vital Signs Temp Pulse Pulse Resp BP BP Pulse Ox 05/13/24 12:19 36.6 C 69 18 116/60 103/63 94 05/13/24 07:41 36.6 C 69 18 116/60 94 05/13/24 07:11 58 L 05/13/24 03:35 36.6 C 71 18 121/64 97 O2 Del Method 05/13/24 12:19 05/13/24 07:41 Room Air 05/13/24 07:11 05/13/24 03:35 Room Air Laboratory Results Abnormal lab results 05/12/24 05/12/24 05/13/24 Range/Units 16:21 20:54 07:32 Glucose 120 H (70-99(Fasting)) mg/dl POC Glucose 108 H 145 H (70-99) mg/dl 05/13/24 05/13/24 Range/Units 07:40 10:59 Glucose (70-99(Fasting)) mg/dl POC Glucose 114 H 145 H (70-99) mg/dl
== END 2024-05-13 14:00 | disposition home or self-care (01) | DRG 641 ==
LOC: ED 14:07 → 2S 17:17 → SUATTDRO 17:17 → 2S 18:06